=== PATIENT | male | born 1970 | race American Indian/Alaskan Native ===

== ENCOUNTER 2018-06-09 10:23 | Emergency (ER) | payer SELFPAY ==
[2018-06-09 10:40] VITALS: BP 124/75
--- NOTE | 2018-06-09 11:53 | Emergency Department Report ---
Minor Respiratory - HPI Chief Complaint: Upper Respiratory Infection Stated Complaint: COUGH Time Seen by Provider: 06/09/18 11:18 Duration: off and on for several months Severity: moderate Minor Respiratory: Yes Rhinorrhea, Yes Able to Tolerate Fluids, Yes Cough (occasionally productive of clear sputum), No Sore Throat, No Ear Pain, No Sick Contacts, No Hemoptysis, No Chest Pain, No Shortness of Breath, No Fever Other History: Patient is a heavy smoker. Patient has no primary care physician 1 for his chronic cough. ED Review of Systems ROS: Stated complaint: COUGH Other details as noted in HPI Comment: All other systems reviewed and negative ED Past Medical Hx - Past Medical History Previous Medical History?: Yes Hx Arthritis: Yes - Surgical History Past Surgical History?: No - Social History Smoking Status: Current Every Day Smoker Substance Use Type: Marijuana - Medications Home Medications: Home Medications Medication Instructions Recorded Confirmed Last Taken Type ALBUTEROL Inhaler (OR & NICU) 2 puff IH QID PRN #1 inhalation 06/09/18 Unknown Rx [ProAir HFA Inhaler] predniSONE [Deltasone] 20 mg PO QDAY #5 tab 06/09/18 Unknown Rx Minor Respiratory Exam - Exam General: Vital signs noted. No distress. Alert and acting appropriately. HEENT: Yes Moist Mucous Membranes, No Pharyngeal Erythema, No Pharyngeal Exudates, No Rhinorrhea, No Conjuctival Injection, No Frontal Tenderness, No Maxillary Tenderness Ear: Neither TM Bulge, Neither TM Erythema, Neither EAC Pain, Neither EAC Discharge Neck: Yes Supple, No Adenopathy Lungs: Yes Good Air Exchange, No Wheezes, No Ronchi, No Stridor, No Cough, No Labored Respirations, No Retractions, No Use of Accessory Muscles, No Other Abnormal Lung Sounds Heart: Yes Regular, No Murmur Abdomen: Yes Normal Bowel Sounds, No Tenderness, No Peritoneal Signs Skin: No Rash, No Edema Neurologic: Alert and oriented, no deficits. Musculoskeletal: Unremarkable. ED Course Vital Signs 06/09/18 10:38 Temperature 98.2 F Pulse Rate 80 Respiratory 16 Rate Blood Pressure 124/75 O2 Sat by Pulse 97 Oximetry ED Medical Decision Making - Medical Decision Making Patient will be referred to pulmonology for his chronic cough. Patient has been encouraged to decrease or stop smoking. Critical care attestation.: If time is entered above; I have spent that time in minutes in the direct care of this critically ill patient, excluding procedure time. ED Disposition Clinical Impression: Chronic bronchitis Disposition: DC-01 TO HOME OR SELFCARE Is pt being admited?: No Does the pt Need Aspirin: No Condition: Stable Instructions: Chronic Bronchitis (ED) Referrals: HENNA ARIAS MD [Primary Care Provider] - 3-5 Days Time of Disposition: 11:53
== END 2018-06-09 12:03 | disposition home or self-care (01) ==
LOC: ED 10:23
DX: M19.90 Unspecified osteoarthritis, unspecified site (principal); F17.200 Nicotine dependence, unspecified, uncomplicated; F12.10 Cannabis abuse, uncomplicated; Z88.8 Allergy status to other drugs, medicaments and biological substances
CPT/HCPCS: 99282

== ENCOUNTER 2018-06-19 19:13 | Emergency (ER) | payer SELFPAY ==
[2018-06-19 19:28] VITALS: BP 137/65
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
== END 2018-06-19 21:25 | disposition home or self-care (01) ==
LOC: MERGE 19:13 → ED 19:13
DX: S46.812A Strain of other muscles, fascia and tendons at shoulder and upper arm level, left arm, initial encounter (principal); M54.2 Cervicalgia; M25.561 Pain in right knee; M25.521 Pain in right elbow; R07.89 Other chest pain; F31.9 Bipolar disorder, unspecified; F20.9 Schizophrenia, unspecified; Z88.8 Allergy status to other drugs, medicaments and biological substances; V19.9XXA Pedal cyclist (driver) (passenger) injured in unspecified traffic accident, initial encounter; Y93.89 Activity, other specified; Y92.488 Other paved roadways as the place of occurrence of the external cause; Y99.8 Other external cause status
CPT/HCPCS: 99282

== ENCOUNTER 2018-08-08 21:42 | Emergency (ER) | payer SELFPAY ==
[2018-08-08 21:55] VITALS: BP 127/85
== END 2018-08-08 22:41 | disposition left against medical advice (07) ==
LOC: ED 21:42
DX: H92.02 Otalgia, left ear (principal); Z53.21 Procedure and treatment not carried out due to patient leaving prior to being seen by health care provider

== ENCOUNTER 2018-09-30 13:46 | Emergency (ER) | payer OTHER ==
[2018-09-30 13:57] VITALS: BP 122/83
--- NOTE | 2018-09-30 13:59 | Emergency Department Report ---
ED ENT HPI - General Chief complaint: Dental/Oral Stated complaint: RT TOOTH PAIN Time Seen by Provider: 09/30/18 13:54 Source: patient Mode of arrival: Ambulatory Limitations: No Limitations - History of Present Illness Initial comments: Pt presents with right upper dental pain that began yesterday. Pt has not taken anything for the dental pain. Pt states he has a cavity on that side. Pt states he has not seen a dentist in 10 years. He denies any fever, N/V. He is a smoker. Pt has a medication allergy to risperidone. PMHx arthritis, bipolar, schizo phrenia. - Related Data Home Medications Medication Instructions Recorded Confirmed Last Taken traZODone [Desyrel] 50 mg PO QHS PRN 12/31/13 02/02/17 2 Days Ago ~06/30/15 Previous Rx's Medication Instructions Recorded Last Taken Type traMADol [Ultram 50 MG tab] 50 mg PO Q6HR PRN #20 tablet 12/05/15 Unknown Rx Amoxicillin/Potassium Clav 1 each PO BID #14 tablet 08/14/17 Unknown Rx [Augmentin 875-125 Tablet] Loratadine/Pseudoephedrine 1 tab PO Q12H #20 tablet 08/14/17 Unknown Rx [Claritin-D 12HR] Amoxicillin/Potassium Clav 1 each PO BIDDIAB #20 tablet 01/13/18 Unknown Rx [Augmentin 875-125 Tablet] ALBUTEROL Inhaler (OR & NICU) 2 puff IH QID PRN #1 inhalation 06/09/18 Unknown Rx [ProAir HFA Inhaler] predniSONE [Deltasone] 20 mg PO QDAY #5 tab 06/09/18 Unknown Rx Baclofen [Lioresal] 10 mg PO TID #15 tab 06/19/18 Unknown Rx Ibuprofen 800 mg PO TID PRN #15 tablet 06/19/18 Unknown Rx Neomy/Polymyx B/Hc (Otic) Soln 4 drops TID #1 bottle 08/09/18 Unknown Rx [Cortisporin (Otic) Soln] Amoxicillin/K Clav Tab [Augmentin 1 tab PO Q12HR 7 Days #14 tab 09/30/18 Unknown Rx 875MG TAB] Ibuprofen [Motrin 800 MG tab] 800 mg PO Q8HR PRN #20 tablet 09/30/18 Unknown Rx Allergies Allergy/AdvReac Type Severity Reaction Status Date / Time risperidone [From Risperdal] Allergy Shortness Verified 06/21/18 08:13 of Breath ED Dental HPI - General Chief complaint: Dental/Oral Stated complaint: RT TOOTH PAIN Time Seen by Provider: 09/30/18 13:54 Source: patient Mode of arrival: Ambulatory Limitations: No Limitations - Related Data Home Medications Medication Instructions Recorded Confirmed Last Taken traZODone [Desyrel] 50 mg PO QHS PRN 12/31/13 02/02/17 2 Days Ago ~06/30/15 Previous Rx's Medication Instructions Recorded Last Taken Type traMADol [Ultram 50 MG tab] 50 mg PO Q6HR PRN #20 tablet 12/05/15 Unknown Rx Amoxicillin/Potassium Clav 1 each PO BID #14 tablet 08/14/17 Unknown Rx [Augmentin 875-125 Tablet] Loratadine/Pseudoephedrine 1 tab PO Q12H #20 tablet 08/14/17 Unknown Rx [Claritin-D 12HR] Amoxicillin/Potassium Clav 1 each PO BIDDIAB #20 tablet 01/13/18 Unknown Rx [Augmentin 875-125 Tablet] ALBUTEROL Inhaler (OR & NICU) 2 puff IH QID PRN #1 inhalation 06/09/18 Unknown Rx [ProAir HFA Inhaler] predniSONE [Deltasone] 20 mg PO QDAY #5 tab 06/09/18 Unknown Rx Baclofen [Lioresal] 10 mg PO TID #15 tab 06/19/18 Unknown Rx Ibuprofen 800 mg PO TID PRN #15 tablet 06/19/18 Unknown Rx Neomy/Polymyx B/Hc (Otic) Soln 4 drops TID #1 bottle 08/09/18 Unknown Rx [Cortisporin (Otic) Soln] Amoxicillin/K Clav Tab [Augmentin 1 tab PO Q12HR 7 Days #14 tab 09/30/18 Unknown Rx 875MG TAB] Ibuprofen [Motrin 800 MG tab] 800 mg PO Q8HR PRN #20 tablet 09/30/18 Unknown Rx Allergies Allergy/AdvReac Type Severity Reaction Status Date / Time risperidone [From Risperdal] Allergy Shortness Verified 06/21/18 08:13 of Breath ED Review of Systems ROS: Stated complaint: RT TOOTH PAIN Other details as noted in HPI Comment: All other systems reviewed and negative ED Past Medical Hx - Past Medical History Previous Medical History?: Yes Hx Arthritis: Yes Hx Psychiatric Treatment: Yes (multiple IP tx's / BIPOLAR / SCHIZOPHRENIA) - Surgical History Past Surgical History?: No - Social History Smoking Status: Current Every Day Smoker Substance Use Type: Alcohol - Medications Home Medications: Home Medications Medication Instructions Recorded Confirmed Last Taken Type traZODone [Desyrel] 50 mg PO QHS PRN 12/31/13 02/02/17 2 Days Ago History ~06/30/15 traMADol [Ultram 50 MG tab] 50 mg PO Q6HR PRN #20 tablet 12/05/15 02/02/17 Unknown Rx Amoxicillin/Potassium Clav 1 each PO BID #14 tablet 08/14/17 Unknown Rx [Augmentin 875-125 Tablet] Loratadine/Pseudoephedrine 1 tab PO Q12H #20 tablet 08/14/17 Unknown Rx [Claritin-D 12HR] Amoxicillin/Potassium Clav 1 each PO BIDDIAB #20 tablet 01/13/18 Unknown Rx [Augmentin 875-125 Tablet] ALBUTEROL Inhaler (OR & NICU) 2 puff IH QID PRN #1 inhalation 06/09/18 Unknown Rx [ProAir HFA Inhaler] predniSONE [Deltasone] 20 mg PO QDAY #5 tab 06/09/18 Unknown Rx Baclofen [Lioresal] 10 mg PO TID #15 tab 06/19/18 Unknown Rx Ibuprofen 800 mg PO TID PRN #15 tablet 06/19/18 Unknown Rx Neomy/Polymyx B/Hc (Otic) Soln 4 drops TID #1 bottle 08/09/18 Unknown Rx [Cortisporin (Otic) Soln] Amoxicillin/K Clav Tab [Augmentin 1 tab PO Q12HR 7 Days #14 tab 09/30/18 Unknown Rx 875MG TAB] Ibuprofen [Motrin 800 MG tab] 800 mg PO Q8HR PRN #20 tablet 09/30/18 Unknown Rx ED Physical Exam - General Limitations: No Limitations General appearance: alert, in no apparent distress - Head Head exam: Present: atraumatic, normocephalic - Eye Eye exam: Present: normal appearance, PERRL - ENT ENT exam: Present: mucous membranes moist, other (pt has fractured tooth on the right upper side, very poor dentition, multiple dental caries, no obvious induration or fluctuance, no facial swelling ) - Neurological Exam Neurological exam: Present: alert, oriented X3 - Psychiatric Psychiatric exam: Present: normal affect, normal mood - Skin Skin exam: Present: warm, dry, intact ED Course Vital Signs 09/30/18 13:55 Temperature 98.4 F Pulse Rate 79 Respiratory 18 Rate Blood Pressure 122/83 O2 Sat by Pulse 94 Oximetry ED Medical Decision Making - Medical Decision Making on exam pt has very poor dentition, multiple dental caries, cracked tooth on the right upper side. no obvious dental abscess, no facial edema. pt given anti- inflammatory and abx. pt given a list of multiple dental clinics. advised to follow up with dentist [facility]. follow up with PCP in the next 2-3 days. Take all medication as prescribed. Return to the ED for any new or worsening symptoms. Critical care attestation.: If time is entered above; I have spent that time in minutes in the direct care of this critically ill patient, excluding procedure time. ED Disposition Clinical Impression: Pain due to dental caries, Broken or cracked tooth, nontraumatic Disposition: - TO HOME OR SELFCARE Is pt being admited?: No Does the pt Need Aspirin: No Condition: Stable Instructions: Dental Caries (ED), Toothache (ED) Additional Instructions: Please take medication as prescribed. Please follow up with a dentist as soon as possible. Given list of dental clinics. Return to the emergency room for any new or worsening symptoms. Prescriptions: Amoxicillin/K Clav Tab [Augmentin 875MG TAB] 1 tab PO Q12HR 7 Days #14 tab Ibuprofen [Motrin 800 MG tab] 800 mg PO Q8HR PRN #20 tablet PRN Reason: Pain Referrals: a, dentist [Other] - [facility] [Provider Group] - 2-3 Days Time of Disposition: 14:20 Print Language: CZECH
== END 2018-09-30 14:40 | disposition home or self-care (01) ==
LOC: ED 13:46
DX: K02.9 Dental caries, unspecified (principal); K03.81 Cracked tooth; F31.9 Bipolar disorder, unspecified; F20.9 Schizophrenia, unspecified; M19.90 Unspecified osteoarthritis, unspecified site; F17.200 Nicotine dependence, unspecified, uncomplicated; Z79.899 Other long term (current) drug therapy; Z88.8 Allergy status to other drugs, medicaments and biological substances
CPT/HCPCS: 99282

== ENCOUNTER 2018-11-18 08:46 | Emergency (ER) | payer OTHER ==
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
[2018-11-18 13:40] VITALS: BP 139/87
== END 2018-11-18 13:40 | disposition home or self-care (01) ==
LOC: ED 08:46
DX: Y92.89 Other specified places as the place of occurrence of the external cause (principal); T76.21XA Adult sexual abuse, suspected, initial encounter; K62.89 Other specified diseases of anus and rectum; F31.9 Bipolar disorder, unspecified; F20.9 Schizophrenia, unspecified; F17.200 Nicotine dependence, unspecified, uncomplicated; M19.90 Unspecified osteoarthritis, unspecified site; Z88.8 Allergy status to other drugs, medicaments and biological substances

== ENCOUNTER 2019-03-23 18:03 | Emergency (ER) | payer OTHER ==
--- NOTE | 2019-03-23 19:27 | Event Note ---
ED Screening Note Date of service: 03/23/19 Time: 19:25 ED Screening Note: This is a 48 y.o. M. that presents to the ER with dental pain and low back pain for 90 days. Patient states he was incarcerated for 90 days and been in pain every since. Given ibuprofen with no improvement of symptoms. Denies recent injury. This initial assessment/diagnostic orders/clinical plan/treatment(s) is/are subject to change based on patients health status, clinical progression and re- assessment by fellow clinical providers in the ED. Further treatment and workup at subsequent clinical providers discretion. Patient/guardian urged not to elope from the ED as their condition may be serious if not clinically assessed and managed. Initial orders include:
[2019-03-23] MEDS ORDERED: IBUPROFEN 800 MG TAB PO ONE (20:36)
--- NOTE | 2019-03-23 20:36 | Emergency Department Report ---
HPI - General Chief Complaint: Dental/Oral Time Seen by Provider: 03/23/19 19:24 - HPI HPI: This is a 48-year-old male here reported that he is having toothache to upper and lower tooth and both sides. He reports that he just came out of assisted and that he is also having backache and neck ache which is chronic for him from lying on the hard surface. He denies any injury. It says on triage sheet the patient was having chest pain but patient denies any chest pain. Denies any shortness of breath. Denies any cough, nasal congestion or runny nose. Denies any fever or chills. Denies any abdominal pain. Toothache is 6 out of 10 and achy and has been ongoing for a while and he said he did not have any access to a dentist because he was incarcerated. Patient is also requesting urology referral for circumcision which I gave him phone number for [facility]. Denies any fever or chills. Denies any drooling or difficulty swallowing. Denies any sore throats. He said he took [id number] Tylenol but is not helping his pain. ED Past Medical Hx - Past Medical History Previous Medical History?: Yes Hx Arthritis: Yes Hx Psychiatric Treatment: Yes (multiple IP tx's / BIPOLAR / SCHIZOPHRENIA) - Surgical History Past Surgical History?: No Additional Surgical History: Chronic neck and back pain - Family History Family history: hypertension - Social History Smoking Status: Current Every Day Smoker Substance Use Type: None - Medications Home Medications: Home Medications Medication Instructions Recorded Confirmed Last Taken Type traZODone [Desyrel] 50 mg PO QHS PRN 12/31/13 02/02/17 2 Days Ago History ~06/30/15 traMADol [Ultram 50 MG tab] 50 mg PO Q6HR PRN #20 tablet 12/05/15 02/02/17 Unkn own Rx Amoxicillin/Potassium Clav 1 each PO BID #14 tablet 08/14/17 Unknown Rx [Augmentin 875-125 Tablet] Loratadine/Pseudoephedrine 1 tab PO Q12H #20 tablet 08/14/17 Unknown Rx [Claritin-D 12HR] Amoxicillin/Potassium Clav 1 each PO BIDDIAB #20 tablet 01/13/18 Unknown Rx [Augmentin 875-125 Tablet] ALBUTEROL Inhaler (OR & NICU) 2 puff IH QID PRN #1 inhalation 06/09/18 Unknown Rx [ProAir HFA Inhaler] predniSONE [Deltasone] 20 mg PO QDAY #5 tab 06/09/18 Unknown Rx Baclofen [Lioresal] 10 mg PO TID #15 tab 06/19/18 Unknown Rx Ibuprofen 800 mg PO TID PRN #15 tablet 06/19/18 Unknown Rx Neomy/Polymyx B/Hc (Otic) Soln 4 drops TID #1 bottle 08/09/18 Unknown Rx [Cortisporin (Otic) Soln] Amoxicillin/K Clav Tab [Augmentin 1 tab PO Q12HR 7 Days #14 tab 09/30/18 Unknown Rx 875MG TAB] Amoxicillin [Amoxicillin TAB] 875 mg PO BID 10 Days #20 tablet 03/23/19 Unknown Rx Ibuprofen [Motrin 800 MG tab] 800 mg PO Q8HR PRN #12 tablet 03/23/19 Unknown Rx ED Review of Systems ROS: Stated complaint: CHEST PAIN/THROAT/BACK PAIN Other details as noted in HPI Constitutional: denies: chills, fever Eyes: denies: eye pain, eye discharge ENT: dental pain. denies: ear pain, throat pain, hearing loss, epistaxis, congestion Respiratory: denies: cough, shortness of breath, wheezing Cardiovascular: denies: chest pain, palpitations, edema, syncope Gastrointestinal: denies: nausea, vomiting Genitourinary: denies: urgency, dysuria, frequency, hematuria, discharge, testicular pain, testicular mass Musculoskeletal: back pain (back pain on-and-off that has been going on for years), arthralgia (chronic neck pain that started going on for years). denies: joint swelling, myalgia Skin: denies: rash Neurological: denies: headache, weakness, numbness, paresthesias, confusion, abnormal gait, vertigo Physical Exam - Physical Exam Vital Signs: Vital Signs 03/23/19 19:11 Temperature 98.4 F Pulse Rate 79 Respiratory 20 Rate Blood Pressure 134/38 O2 Sat by Pulse 97 Oximetry General: This is a 48-year-old male well-nourished well-developed in no acute distress. Physical Exam: Head: Normocephalic atraumatic Ears:BIateral TM pearly bills . Anthony EAC with normal exam. No mastoid bone tenderness. Mouth: Moist, no pharyngeal erythema or exudate . Tongue is normal and oral airways patent. Uvula is midline. No abscess noted but noted dental tenderness around tooth #1,2 and 32. Noted dental cavities to several teeth without any pulp exposure. Lip is normal. Neck: Nontender to palpate, supple, normal range of motion. No adenopathy. No c- spine tenderness. Nose: Bilateral nasal mucosa normal exam maxillary and frontal sinuses non- tender to palpate. Eyes: Bilateral Sclerae and conjunctiva without injection. Bilateral pupils equal and reactive to light. Lungs: Clear to auscultate bilaterally, no rhonchi wheezes or rales. Normal work of breathing and no chest wall tenderness CV: S1, S2. Regular rate and rhythm negative murmur. Capillary refill is less than 3 seconds Abdomen: Nontender to palpation in all quadrants: No guarding or rebound tenderness. Positive bowel sounds in all quadrants Back: No paraspinal or vertebral tenderness to T-spine or L-spine. Patient able to ambulate without any difficulties. Normal sensation in all extremities, normal reflexes and negative straight leg raises. Neurological: And oriented 3, GCS of 15, speech is clear fluid, no facial asymmetry and no focal deficit. Extremity: No clubbing, cyanosis or edema. +2 pulses in all extremities and no neurovascular compromise Skin: Clean dry and intact, no rashes or lesions ED Course Vital Signs 03/23/19 19:11 Temperature 98.4 F Pulse Rate 79 Respiratory 20 Rate Blood Pressure 134/38 O2 Sat by Pulse 97 Oximetry - Reevaluation(s) Reevaluation #1: 03/23/19 21:05 She given amoxicillin 500 mg by mouth and Motrin 800 mg by mouth to cover pain and also gingivitis. He was given telephone number for [place] [facility] as she requested to follow-up for circumcision. ED Medical Decision Making - Medical Decision Making This is a 48-year-old male here for toothache mainly reports that he is having backache and neck ache that was aggravated from him been incarcerated but examination was normal for neck and back were no neurological damage. He has multiple dental caries, missing tooth and also gingivitis. Patient was given Motrin 800 mg in emergency room along with amoxicillin to start treatment for gingivitis and referral to [facility] and [facility] to follow for primary care. He was given number for [place] [facility] as requested for referral for circumcision an adult. He said the Motrin helped this pain and he has no acute distress. Vital signs stable he is afebrile and discharged home in stable condition. Patient was given good Rx prescription card for medication Critical care attestation.: If time is entered above; I have spent that time in minutes in the direct care of this critically ill patient, excluding procedure time. ED Disposition Clinical Impression: Gingivitis, Toothache, Musculoskeletal pain, Dental caries Disposition: TO HOME OR SELFCARE Is pt being admited?: No Does the pt Need Aspirin: No Condition: Stable Instructions: Toothache (ED), Dental Caries (ED), Gingivitis (ED), Musculoskeletal Pain (ED) Additional Instructions: Please follow up with [facility] and [facility] as instructed and see information given for phone number and direction to clinics. You condition worsens, return to the emergency room otherwise follow-up as instructed Take Motrin for pain and amoxicillin antibiotic for gingivitis and you need to see a dentist for evaluation and treatment. Prescriptions: Amoxicillin [Amoxicillin TAB] 875 mg PO BID 10 Days #20 tablet Ibuprofen [Motrin 800 MG tab] 800 mg PO Q8HR PRN #12 tablet PRN Reason: Pain Referrals: [facility] [Outside] - 3-5 Days [facility] [Outside] - 3-5 Days [facility] [Provider Group] - 3-5 Days Forms: Work/School Release Form(ED)
[2019-03-23] MEDS ORDERED: AMOXICILLIN 500 MG CAP PO ONE (20:37)
[2019-03-23 21:53] VITALS: BP 114/80
== END 2019-03-23 21:52 | disposition home or self-care (01) ==
LOC: ED 18:03
DX: K05.10 Chronic gingivitis, plaque induced (principal); K02.9 Dental caries, unspecified; F31.9 Bipolar disorder, unspecified; F17.200 Nicotine dependence, unspecified, uncomplicated; Z88.8 Allergy status to other drugs, medicaments and biological substances

== ENCOUNTER 2021-05-09 20:45 | Emergency (ER) | payer MEDICARE ==
--- NOTE | 2021-05-09 22:27 | Emergency Department Report ---
ED General Adult HPI - General Chief complaint: Skin/Abscess/Foreign Body Stated complaint: L SIDE PAIN Time Seen by Provider: 05/09/21 22:13 Source: patient Mode of arrival: Ambulatory Limitations: No Limitations - Related Data Home Medications Medication Instructions Recorded Confirmed Last Taken traZODone [Desyrel] 50 mg PO QHS PRN 12/31/13 02/02/17 2 Days Ago ~06/30/15 Previous Rx's Medication Instructions Recorded Last Taken Type traMADoL [Ultram 50 MG tab] 50 mg PO Q6HR PRN #20 tablet 12/05/15 Unknown Rx Amoxicillin/Potassium Clav 1 each PO BID #14 tablet 08/14/17 Unknown Rx [Augmentin 875-125 Tablet] Loratadine/Pseudoephedrine 1 tab PO Q12H #20 tablet 08/14/17 Unknown Rx [Claritin-D 12HR] Amoxicillin/Potassium Clav 1 each PO BIDDIAB #20 tablet 01/13/18 Unknown Rx [Augmentin 875-125 Tablet] Albuterol Mdi (or & Nicu Only) 2 puff IH QID PRN #1 inhalation 06/09/18 Unknown Rx [ProAir HFA Inhaler] predniSONE [Deltasone] 20 mg PO QDAY #5 tab 06/09/18 Unknown Rx Baclofen [Lioresal] 10 mg PO TID #15 tab 06/19/18 Unknown Rx Ibuprofen 800 mg PO TID PRN #15 tablet 06/19/18 Unknown Rx Neomy/Polymyx B/Hc (Otic) Soln 4 drops TID #1 bottle 08/09/18 Unknown Rx [Cortisporin (Otic) Soln] Amoxicillin/K Clav Tab [Augmentin 1 tab PO Q12HR 7 Days #14 tab 09/30/18 Unknown Rx 875MG TAB] Amoxicillin [Amoxicillin TAB] 875 mg PO BID 10 Days #20 tablet 03/23/19 Unknown Rx Ibuprofen [Motrin 800 MG tab] 800 mg PO Q8HR PRN #12 tablet 03/23/19 Unknown Rx Amoxicillin [Amoxicillin TAB] 875 mg PO BID #20 tablet 05/09/21 Unknown Rx Chlorhexidine Mouthwash [Peridex] 15 ml MM BID #1 bottle 05/09/21 Unknown Rx Ketorolac [Toradol] 10 mg PO Q6H PRN #15 tablet 05/09/21 Unknown Rx Lidocaine Viscous 2% 5 ml MM Q3H PRN #120 udc 05/09/21 Unknown Rx Allergies Allergy/AdvReac Type Severity Reaction Status Date / Time risperidone [From Risperdal] Allergy Shortness Verified 05/09/21 22:13 of Breath ED Review of Systems ROS: Stated complaint: L SIDE PAIN Other details as noted in HPI Comment: All other systems reviewed and negative ED Past Medical Hx - Past Medical History Hx Arthritis: Yes Hx Psychiatric Treatment: Yes (multiple IP tx's / BIPOLAR / SCHIZOPHRENIA) - Surgical History Additional Surgical History: Chronic neck and back pain - Social History Smoking Status: Current Every Day Smoker Substance Use Type: None - Medications Home Medications: Home Medications Medication Instructions Recorded Confirmed Last Taken Type traZODone [Desyrel] 50 mg PO QHS PRN 12/31/13 02/02/17 2 Days Ago History ~06/30/15 traMADoL [Ultram 50 MG tab] 50 mg PO Q6HR PRN #20 tablet 12/05/15 02/02/17 Unknown Rx Amoxicillin/Potassium Clav 1 each PO BID #14 tablet 08/14/17 Unknown Rx [Augmentin 875-125 Tablet] Loratadine/Pseudoephedrine 1 tab PO Q12H #20 tablet 08/14/17 Unknown Rx [Claritin-D 12HR] Amoxicillin/Potassium Clav 1 each PO BIDDIAB #20 tablet 01/13/18 Unknown Rx [Augmentin 875-125 Tablet] Albuterol Mdi (or & Nicu Only) 2 puff IH QID PRN #1 inhalation 06/09/18 Unknown Rx [ProAir HFA Inhaler] predniSONE [Deltasone] 20 mg PO QDAY #5 tab 06/09/18 Unknown Rx Baclofen [Lioresal] 10 mg PO TID #15 tab 06/19/18 Unknown Rx Ibuprofen 800 mg PO TID PRN #15 tablet 06/19/18 Unknown Rx Neomy/Polymyx B/Hc (Otic) Soln 4 drops TID #1 bottle 08/09/18 Unknown Rx [Cortisporin (Otic) Soln] Amoxicillin/K Clav Tab [Augmentin 1 tab PO Q12HR 7 Days #14 tab 09/30/18 Unknown Rx 875MG TAB] Amoxicillin [Amoxicillin TAB] 875 mg PO BID 10 Days #20 tablet 03/23/19 Unknown Rx Ibuprofen [Motrin 800 MG tab] 800 mg PO Q8HR PRN #12 tablet 03/23/19 Unknown Rx Amoxicillin [Amoxicillin TAB] 875 mg PO BID #20 tablet 05/09/21 Unknown Rx Chlorhexidine Mouthwash [Peridex] 15 ml MM BID #1 bottle 05/09/21 Unknown Rx Ketorolac [Toradol] 10 mg PO Q6H PRN #15 tablet 05/09/21 Unknown Rx Lidocaine Viscous 2% 5 ml MM Q3H PRN #120 udc 05/09/21 Unknown Rx ED Physical Exam - General Limitations: No Limitations General appearance: alert, in no apparent distress - Head Head exam: Present: normocephalic - Expanded Head Exam Expanded 1 - inclusion cyst to this regin. - Eye Eye exam: Present: normal appearance - ENT ENT exam: Present: mucous membranes moist - Expanded ENT Exam Expanded 1 - Dental Tenderness (with several erroded dention. gingival erythema.) - Neck Neck exam: Present: normal inspection - Respiratory Respiratory exam: Present: normal lung sounds bilaterally. Absent: respiratory distress - Cardiovascular Cardiovascular Exam: Present: regular rate, normal rhythm. Absent: systolic murmur, diastolic murmur, rubs, gallop - GI/Abdominal GI/Abdominal exam: Present: soft, normal bowel sounds - Rectal Rectal exam: Present: deferred - Extremities Exam Extremities exam: Present: normal inspection - Back Exam Back exam: Present: normal inspection - Neurological Exam Neurological exam: Present: alert, oriented X3 - Psychiatric Psychiatric exam: Present: normal affect, normal mood - Skin Skin exam: Present: warm, dry, intact, normal color. Absent: rash ED Course Vital Signs 05/09/21 22:09 Temperature 98.6 F Pulse Rate 71 Respiratory 17 Rate Blood Pressure 150/79 [Right] O2 Sat by Pulse 99 Oximetry Critical care attestation.: If time is entered above; I have spent that time in minutes in the direct care of this critically ill patient, excluding procedure time. ED Disposition Clinical Impression: Inclusion cyst, Infected dental caries Disposition: 01 HOME / SELF CARE / HOMELESS Is pt being admited?: No Does the pt Need Aspirin: No Condition: Stable Instructions: Epidermal Cyst Removal, Epidermal Cyst, Epidermal Cyst Removal, Care After Prescriptions: Amoxicillin [Amoxicillin TAB] 875 mg PO BID #20 tablet Lidocaine Viscous 2% 5 ml MM Q3H PRN #120 udc PRN Reason: Pain, Moderate (4-6) Chlorhexidine Mouthwash [Peridex] 15 ml MM BID #1 bottle Ketorolac [Toradol] 10 mg PO Q6H PRN #15 tablet PRN Reason: Pain Referrals: [facility] [Outside] - 3-5 Days (DENTAL CLINIC ) DEBRA LAMA MD [Staff Physician] - 3-5 Days
[2021-05-09 23:32] VITALS: BP 148/67
== END 2021-05-09 23:36 | disposition home or self-care (01) ==
LOC: ED 20:45
DX: L72.0 Epidermal cyst (principal); K02.9 Dental caries, unspecified; M19.90 Unspecified osteoarthritis, unspecified site; G89.29 Other chronic pain; F17.200 Nicotine dependence, unspecified, uncomplicated; Z79.899 Other long term (current) drug therapy
CPT/HCPCS: 99282

== ENCOUNTER 2021-05-11 21:24 | Emergency (ER) | payer MEDICARE | END 2021-05-12 04:12 | disposition left against medical advice (07) | LOC: ED 21:24 | DX: M25.551 Pain in right hip (principal); Z53.21 Procedure and treatment not carried out due to patient leaving prior to being seen by health care provider ==

== ENCOUNTER 2021-06-03 00:30 | Emergency (ER) | payer SELFPAY ==
[2021-06-03 00:37] VITALS: BP 151/75
--- NOTE | 2021-06-03 03:51 | Emergency Department Report ---
ED General Adult HPI - General Chief complaint: Extremity Injury, Lower Stated complaint: RIGHT NIP PAIN Time Seen by Provider: 06/03/21 03:26 Source: patient Mode of arrival: Ambulatory Limitations: No Limitations - History of Present Illness Initial comments: 50-year-old [place] male just emerged from complaining of hip pain associated with morning stiffness has been present for the last 4-5+ weeks. He reports no injury, no nausea, no vomiting, no abdominal pain no dysuria no fever, chills, sweats. No chest pain or palpitation. He reports no falls. Reports no recent injections in the hip area. -: Gradual Radiation: non-radiation Quality: aching, dull Consistency: constant Improves with: none Worsens with: none Associated Symptoms: denies other symptoms Treatments Prior to Arrival: none - Related Data Home Medications Medication Instructions Recorded Confirmed Last Taken traZODone [Desyrel] 50 mg PO QHS PRN 12/31/13 02/02/17 2 Days Ago ~06/30/15 Previous Rx's Medication Instructions Recorded Last Taken Type traMADoL [Ultram 50 MG tab] 50 mg PO Q6HR PRN #20 tablet 12/05/15 Unknown Rx Amoxicillin/Potassium Clav 1 each PO BID #14 tablet 08/14/17 Unknown Rx [Augmentin 875-125 Tablet] Loratadine/Pseudoephedrine 1 tab PO Q12H #20 tablet 08/14/17 Unknown Rx [Claritin-D 12HR] Amoxicillin/Potassium Clav 1 each PO BIDDIAB #20 tablet 01/13/18 Unknown Rx [Augmentin 875-125 Tablet] Albuterol Mdi (or & Nicu Only) 2 puff IH QID PRN #1 inhalation 06/09/18 Unknown Rx [ProAir HFA Inhaler] predniSONE [Deltasone] 20 mg PO QDAY #5 tab 06/09/18 Unknown Rx Baclofen [Lioresal] 10 mg PO TID #15 tab 06/19/18 Unknown Rx Ibuprofen 800 mg PO TID PRN #15 tablet 06/19/18 Unknown Rx Neomy/Polymyx B/Hc (Otic) Soln 4 drops TID #1 bottle 08/09/18 Unknown Rx [Cortisporin (Otic) Soln] Amoxicillin/K Clav Tab [Augmentin 1 tab PO Q12HR 7 Days #14 tab 09/30/18 Unknown Rx 875MG TAB] Amoxicillin [Amoxicillin TAB] 875 mg PO BID 10 Days #20 tablet 03/23/19 Unknown Rx Ibuprofen [Motrin 800 MG tab] 800 mg PO Q8HR PRN #12 tablet 03/23/19 Unknown Rx Amoxicillin [Amoxicillin TAB] 875 mg PO BID #20 tablet 05/09/21 Unknown Rx Chlorhexidine Mouthwash [Peridex] 15 ml MM BID #1 bottle 05/09/21 Unknown Rx Ketorolac [Toradol] 10 mg PO Q6H PRN #15 tablet 05/09/21 Unknown Rx Lidocaine Viscous 2% 5 ml MM Q3H PRN #120 udc 05/09/21 Unknown Rx Meloxicam [Mobic] 15 mg PO DAILY #10 06/03/21 Unknown Rx Allergies Allergy/AdvReac Type Severity Reaction Status Date / Time risperidone [From Risperdal] Allergy Shortness Verified 05/09/21 22:13 of Breath ED Review of Systems ROS: Stated complaint: RIGHT NIP PAIN Other details as noted in HPI Comment: All other systems reviewed and negative ED Past Medical Hx - Past Medical History Previous Medical History?: Yes Hx Arthritis: Yes Hx Psychiatric Treatment: Yes (multiple IP tx's / BIPOLAR / SCHIZOPHRENIA) - Surgical History Past Surgical History?: Yes Additional Surgical History: Chronic neck and back pain - Social History Smoking Status: Current Every Day Smoker Substance Use Type: None - Medications Home Medications: Home Medications Medication Instructions Recorded Confirmed Last Taken Type traZODone [Desyrel] 50 mg PO QHS PRN 12/31/13 02/02/17 2 Days Ago History ~06/30/15 traMADoL [Ultram 50 MG tab] 50 mg PO Q6HR PRN #20 tablet 12/05/15 02/02/17 Unknown Rx Amoxicillin/Potassium Clav 1 each PO BID #14 tablet 08/14/17 Unknown Rx [Augmentin 875-125 Tablet] Loratadine/Pseudoephedrine 1 tab PO Q12H #20 tablet 08/14/17 Unknown Rx [Claritin-D 12HR] Amoxicillin/Potassium Clav 1 each PO BIDDIAB #20 tablet 01/13/18 Unknown Rx [Augmentin 875-125 Tablet] Albuterol Mdi (or & Nicu Only) 2 puff IH QID PRN #1 inhalation 06/09/18 Unknown Rx [ProAir HFA Inhaler] predniSONE [Deltasone] 20 mg PO QDAY #5 tab 06/09/18 Unknown Rx Baclofen [Lioresal] 10 mg PO TID #15 tab 06/19/18 Unknown Rx Ibuprofen 800 mg PO TID PRN #15 tablet 06/19/18 Unknown Rx Neomy/Polymyx B/Hc (Otic) Soln 4 drops TID #1 bottle 08/09/18 Unknown Rx [Cortisporin (Otic) Soln] Amoxicillin/K Clav Tab [Augmentin 1 tab PO Q12HR 7 Days #14 tab 09/30/18 Unknown Rx 875MG TAB] Amoxicillin [Amoxicillin TAB] 875 mg PO BID 10 Days #20 tablet 03/23/19 Unknown Rx Ibuprofen [Motrin 800 MG tab] 800 mg PO Q8HR PRN #12 tablet 03/23/19 Unknown Rx Amoxicillin [Amoxicillin TAB] 875 mg PO BID #20 tablet 05/09/21 Unknown Rx Chlorhexidine Mouthwash [Peridex] 15 ml MM BID #1 bottle 05/09/21 Unknown Rx Ketorolac [Toradol] 10 mg PO Q6H PRN #15 tablet 05/09/21 Unknown Rx Lidocaine Viscous 2% 5 ml MM Q3H PRN #120 udc 05/09/21 Unknown Rx Meloxicam [Mobic] 15 mg PO DAILY #10 06/03/21 Unknown Rx ED Physical Exam - General Limitations: No Limitations General appearance: alert, in no apparent distress - Head Head exam: Present: atraumatic, normocephalic - Eye Eye exam: Present: normal appearance, PERRL, EOMI Pupils: Present: normal accommodation - ENT ENT exam: Present: normal exam, normal orophraynx, mucous membranes moist, TM's normal bilaterally - Neck Neck exam: Present: normal inspection, full ROM - Respiratory Respiratory exam: Present: normal lung sounds bilaterally. Absent: respiratory distress - Cardiovascular Cardiovascular Exam: Present: regular rate, normal rhythm. Absent: systolic murmur, diastolic murmur, rubs, gallop - GI/Abdominal GI/Abdominal exam: Present: soft, normal bowel sounds - Rectal Rectal exam: Present: deferred - Extremities Exam Extremities exam: Present: normal inspection - Back Exam Back exam: Present: normal inspection, CVA tenderness (R), other (Need to seek evaluation. But the joint is stable normal. No bruising. No tenderness to tooth to the iliac crest. Full range of motion is noted. Strength is 5/5) - Neurological Exam Neurological exam: Present: alert, oriented X3, CN II-XII intact, normal gait - Psychiatric Psychiatric exam: Present: normal affect, normal mood - Skin Skin exam: Present: warm, dry, intact, normal color. Absent: rash ED Course Vital Signs 06/03/21 00:36 Temperature 98.0 F Pulse Rate 80 Respiratory 18 Rate Blood Pressure 151/75 O2 Sat by Pulse 98 Oximetry Critical care attestation.: If time is entered above; I have spent that time in minutes in the direct care of this critically ill patient, excluding procedure time. ED Disposition Clinical Impression: Hip pain Disposition: HOME / SELF CARE / HOMELESS Is pt being admited?: No Does the pt Need Aspirin: No Condition: Stable Instructions: Hip Pain, Joint Pain, Joint Pain, [id number] Prescriptions: Meloxicam [Mobic] 15 mg PO DAILY #10 Referrals: MABEL KENNEDY MD [Staff Physician] - 3-5 Days
== END 2021-06-03 03:32 | disposition home or self-care (01) ==
LOC: ED 00:30
DX: M25.551 Pain in right hip (principal); M19.90 Unspecified osteoarthritis, unspecified site; F20.9 Schizophrenia, unspecified; F31.9 Bipolar disorder, unspecified; Z98.890 Other specified postprocedural states; Z79.899 Other long term (current) drug therapy
CPT/HCPCS: 99282

== ENCOUNTER 2021-12-07 13:58 | Emergency (ER) | payer MEDICARE ==
[2021-12-08] MEDS ORDERED: oxyCODONE /ACETAMINOPHEN 5-325MG TAB PO ONE (02:00)
--- NOTE | 2021-12-08 02:45 | Emergency Department Report ---
ED General Adult HPI - General Chief complaint: Pain General Stated complaint: RT HIP AAND NECK PAIN Time Seen by Provider: 12/07/21 20:57 Source: patient Mode of arrival: Ambulatory Limitations: No Limitations - History of Present Illness Initial comments: 49-year-old male presents emerged department complaining of pain to the right cheek history of an unknown type of arthritis of the last 1 to 2 months has been fluctuating off and on. Worsened over the last 2 weeks but reports no traumatic events preceding or worsening symptoms. No numbness or tingling. Pain is dull and throbbing worse with standing up pacing. No fever, chills, sweats. No dysuria no hematuria no hematuria no loss of bowel bladder no saddle paresthesia. Severity scale (0 -10): 7 Quality: dull Consistency: constant Improves with: none Worsens with: none Associated Symptoms: denies other symptoms Treatments Prior to Arrival: none - Related Data Home Medications Medication Instructions Recorded Confirmed Last Taken traZODone [Desyrel] 50 mg PO QHS PRN 12/31/13 02/02/17 2 Days Ago ~06/30/15 Previous Rx's Medication Instructions Recorded Last Taken Type traMADoL [Ultram 50 MG tab] 50 mg PO Q6HR PRN #20 tablet 12/05/15 Unknown Rx Amoxicillin/Potassium Clav 1 each PO BID #14 tablet 08/14/17 Unknown Rx [Augmentin 875-125 Tablet] Loratadine/Pseudoephedrine 1 tab PO Q12H #20 tablet 08/14/17 Unknown Rx [Claritin-D 12HR] Amoxicillin/Potassium Clav 1 each PO BIDDIAB #20 tablet 01/13/18 Unknown Rx [Augmentin 875-125 Tablet] Albuterol Mdi (or & Nicu Only) 2 puff IH QID PRN #1 inhalation 06/09/18 Unknown Rx [ProAir HFA Inhaler] predniSONE [Deltasone] 20 mg PO QDAY #5 tab 06/09/18 Unknown Rx Baclofen [Lioresal] 10 mg PO TID #15 tab 06/19/18 Unknown Rx Ibuprofen 800 mg PO TID PRN #15 tablet 06/19/18 Unknown Rx Neomy/Polymyx B/Hc (Otic) Soln 4 drops TID #1 bottle 08/09/18 Unknown Rx [Cortisporin (Otic) Soln] Amoxicillin/K Clav Tab [Augmentin 1 tab PO Q12HR 7 Days #14 tab 09/30/18 Unknown Rx 875MG TAB] Amoxicillin [Amoxicillin TAB] 875 mg PO BID 10 Days #20 tablet 03/23/19 Unknown Rx Ibuprofen [Motrin 800 MG tab] 800 mg PO Q8HR PRN #12 tablet 03/23/19 Unknown Rx Amoxicillin [Amoxicillin TAB] 875 mg PO BID #20 tablet 05/09/21 Unknown Rx Chlorhexidine Mouthwash [Peridex] 15 ml MM BID #1 bottle 05/09/21 Unknown Rx Ketorolac [Toradol] 10 mg PO Q6H PRN #15 tablet 05/09/21 Unknown Rx Lidocaine Viscous 2% 5 ml MM Q3H PRN #120 udc 05/09/21 Unknown Rx Meloxicam [Mobic] 15 mg PO DAILY #10 06/03/21 Unknown Rx Ketorolac [Toradol] 10 mg PO Q6H PRN #15 tablet 12/08/21 Unknown Rx traMADoL [Ultram] 50 mg PO Q6HR PRN #20 tablet 12/08/21 Unknown Rx Allergies Allergy/AdvReac Type Severity Reaction Status Date / Time risperidone [From Risperdal] Allergy Shortness Verified 12/07/21 16:43 of Breath ED Review of Systems ROS: Stated complaint: RT HIP AAND NECK PAIN Other details as noted in HPI Comment: All other systems reviewed and negative ED Past Medical Hx - Past Medical History Hx Arthritis: Yes Hx Psychiatric Treatment: Yes (multiple IP tx's / BIPOLAR / SCHIZOPHRENIA) - Surgical History Additional Surgical History: Chronic neck and back pain - Social History Smoking Status: Current Every Day Smoker Substance Use Type: None - Medications Home Medications: Home Medications Medication Instructions Recorded Confirmed Last Taken Type traZODone [Desyrel] 50 mg PO QHS PRN 12/31/13 02/02/17 2 Days Ago History ~06/30/15 traMADoL [Ultram 50 MG tab] 50 mg PO Q6HR PRN #20 tablet 12/05/15 02/02/17 Unknown Rx Amoxicillin/Potassium Clav 1 each PO BID #14 tablet 08/14/17 Unknown Rx [Augmentin 875-125 Tablet] Loratadine/Pseudoephedrine 1 tab PO Q12H #20 tablet 08/14/17 Unknown Rx [Claritin-D 12HR] Amoxicillin/Potassium Clav 1 each PO BIDDIAB #20 tablet 01/13/18 Unknown Rx [Augmentin 875-125 Tablet] Albuterol Mdi (or & Nicu Only) 2 puff IH QID PRN #1 inhalation 06/09/18 Unknown Rx [ProAir HFA Inhaler] predniSONE [Deltasone] 20 mg PO QDAY #5 tab 06/09/18 Unknown Rx Baclofen [Lioresal] 10 mg PO TID #15 tab 06/19/18 Unknown Rx Ibuprofen 800 mg PO TID PRN #15 tablet 06/19/18 Unknown Rx Neomy/Polymyx B/Hc (Otic) Soln 4 drops TID #1 bottle 08/09/18 Unknown Rx [Cortisporin (Otic) Soln] Amoxicillin/K Clav Tab [Augmentin 1 tab PO Q12HR 7 Days #14 tab 09/30/18 Unknown Rx 875MG TAB] Amoxicillin [Amoxicillin TAB] 875 mg PO BID 10 Days #20 tablet 03/23/19 Unknown Rx Ibuprofen [Motrin 800 MG tab] 800 mg PO Q8HR PRN #12 tablet 03/23/19 Unknown Rx Amoxicillin [Amoxicillin TAB] 875 mg PO BID #20 tablet 05/09/21 Unknown Rx Chlorhexidine Mouthwash [Peridex] 15 ml MM BID #1 bottle 05/09/21 Unknown Rx Ketorolac [Toradol] 10 mg PO Q6H PRN #15 tablet 05/09/21 Unknown Rx Lidocaine Viscous 2% 5 ml MM Q3H PRN #120 udc 05/09/21 Unknown Rx Meloxicam [Mobic] 15 mg PO DAILY #10 06/03/21 Unknown Rx Ketorolac [Toradol] 10 mg PO Q6H PRN #15 tablet 12/08/21 Unknown Rx traMADoL [Ultram] 50 mg PO Q6HR PRN #20 tablet 12/08/21 Unknown Rx ED Physical Exam - General Limitations: No Limitations General appearance: alert, in no apparent distress - Head Head exam: Present: atraumatic, normocephalic - Eye Eye exam: Present: normal appearance, PERRL, EOMI Pupils: Present: normal accommodation - ENT ENT exam: Present: normal exam, normal orophraynx, mucous membranes moist, TM's normal bilaterally - Neck Neck exam: Present: normal inspection, full ROM - Respiratory Respiratory exam: Present: normal lung sounds bilaterally. Absent: respiratory distress, wheezes, rales, chest wall tenderness, accessory muscle use - Cardiovascular Cardiovascular Exam: Present: regular rate, normal rhythm. Absent: systolic murmur, diastolic murmur, rubs, gallop - GI/Abdominal GI/Abdominal exam: Present: soft, normal bowel sounds. Absent: distended, tenderness, hypoactive bowel sounds, organomegaly - Rectal Rectal exam: Present: deferred - Extremities Exam Extremities exam: Present: normal inspection, full ROM, tenderness, normal capillary refill - Back Exam Back exam: Present: normal inspection. Absent: CVA tenderness (R), CVA tenderness (L) - Neurological Exam Neurological exam: Present: alert, oriented X3, CN II-XII intact, normal gait - Psychiatric Psychiatric exam: Present: normal affect, normal mood - Skin Skin exam: Present: warm, dry, intact, normal color. Absent: rash ED Course Vital Signs 12/07/21 12/08/21 12/08/21 14:18 02:17 03:10 Temperature 98.7 F Pulse Rate 74 77 Respiratory 14 16 12 Rate Blood Pressure 140/80 146/87 [Left] O2 Sat by Pulse 99 98 Oximetry Critical care attestation.: If time is entered above; I have spent that time in minutes in the direct care of this critically ill patient, excluding procedure time. ED Disposition Clinical Impression: Trochanteric bursitis of right hip Disposition: 01 HOME / SELF CARE / HOMELESS Is pt being admited?: No Does the pt Need Aspirin: No Condition: Stable Instructions: Hip Bursitis, [id number], Hip Bursitis Rehab-Sports[facility] Prescriptions: Ketorolac [Toradol] 10 mg PO Q6H PRN #15 tablet PRN Reason: Pain traMADoL [Ultram] 50 mg PO Q6HR PRN #20 tablet PRN Reason: Pain Referrals: PRIMARY CARE,MD [Primary Care Provider] - 3-5 Days
[2021-12-08 03:11] VITALS: BP 146/87
== END 2021-12-08 03:11 | disposition home or self-care (01) ==
LOC: ED 13:58
DX: M70.61 Trochanteric bursitis, right hip (principal); M19.90 Unspecified osteoarthritis, unspecified site; F20.9 Schizophrenia, unspecified; F31.9 Bipolar disorder, unspecified; G89.29 Other chronic pain; M54.9 Dorsalgia, unspecified; M54.2 Cervicalgia; F17.290 Nicotine dependence, other tobacco product, uncomplicated; Z88.8 Allergy status to other drugs, medicaments and biological substances; Y93.89 Activity, other specified
CPT/HCPCS: 99282

== ENCOUNTER 2021-12-29 21:18 | Emergency (ER) | payer SELFPAY ==
[2021-12-30] MEDS ORDERED: ACETAMINOPHEN 500 MG TAB PO ONE (01:28)
[2021-12-30] MEDS ORDERED: IBUPROFEN 600 MG TAB PO ONE (01:28)
[2021-12-30] MEDS ORDERED: predniSONE 20 MG TAB PO ONE (02:25)
[2021-12-30 02:52] LABS: Basophils % (Auto) 0.5 % (0.0-1.8); Eosinophils # (Auto) 0.4 K/mm3 (0.0-0.4); Eosinophils % (Auto) 7.5 % (0.0-4.3); Hematocrit 38.7 % (35.5-45.6); Lymphocytes # (Auto) 2.3 K/mm3 (1.2-5.4); Mean Corpuscular HGB Conc 34 % (32-34); Mean Corpuscular Volume 96 fl (84-94); Monocytes # (Auto) 0.3 K/mm3 (0.0-0.8); Monocytes % (Auto) 6.8 % (0.0-7.3); Platelet Count 175 K/mm3 (140-440); Red Blood Count 4.03 M/mm3 (3.65-5.03); Red Cell Distribution Width 14.1 % (13.2-15.2)
[2021-12-30 03:11] LABS: Alanine Aminotransferase 10 units/L (7-56); Albumin 3.3 g/dL (3.9-5); BUN/Creatinine Ratio 13; Blood Urea Nitrogen 12 mg/dL (9-20); Hemolysis Index 8
--- NOTE | 2021-12-30 03:32 | XRay Report ---
XR spine cervical 2-3V INDICATION / CLINICAL INFORMATION: pain. COMPARISON: None available. FINDINGS: BONES/JOINT(S): Reversal of normal cervical lordosis. No significant malalignment. Moderate multileve l disc degeneration and moderate facet arthropathy. No evidence of fracture. PARASPINAL SOFT TISSUES:No significant abnormality. ADDITIONAL FINDINGS: None. IMPRESSION: 1. No acute findings. Signer Name: Lorenzo Hicks MD Signed: 12/30/2021 3:27 AM Workstation Name: [id number]
--- NOTE | 2021-12-30 03:34 | XRay Report ---
Left elbow, 3 views HISTORY: Pain COMPARISON: None FINDINGS: There is subtle lucency involving the volar aspect of the left radial head. This is suspici ous for nondisplaced fracture. No additional fracture or joint malalignment. No joint effusion. Signer Name: Lorenzo Hicks MD Signed: 12/30/2021 3:30 AM Workstation Name: [id number]
--- NOTE | 2021-12-30 03:42 | XRay Report ---
Right hip, single provided frog-leg view HISTORY: Pain COMPARISON: None FINDINGS: No acute fracture or malalignment on single provided frog-leg view of the right hip. Mild o steoarthritis. No focal soft tissue abnormality. Signer Name: Lorenzo Hicks MD Signed: 12/30/2021 3:38 AM Workstation Name: [id number]
--- NOTE | 2021-12-30 04:00 | Emergency Department Report ---
ED General Adult HPI - General Chief complaint: Pain General Stated complaint: RT ARM PAIN Source: patient Mode of arrival: Ambulatory Limitations: No Limitations - History of Present Illness Initial comments: Patient is a 51-year-old -Italian male with a history of anxiety, depression, bipolar disorder, paranoid schizophrenia and chronic osteoarthritis due to chronic neck and lower back injuries presents to the ED with complaint of acute exacerbation of his chronic pain characterized by neck pain, right hip and right elbow pain for the last 2 months, worse in the last 5 days. Patient states that he has also been feeling generalized weakness and fatigue. Patient denies dizziness, syncope, chest pain, shortness of breath, fever, chills, nausea and vomiting, diarrhea, cough, sore throat, abdominal pain, traumatic injury, heavy lifting, dysuria, urinary frequency and urgency or testicular pain and hematuria MD Complaint: chronic neck pain, chronic right hip and elbow pain -: Gradual, year(s) (12) Location: neck, back (lower), upper extremity (right elbow) Radiation: non-radiation Severity scale (0 -10): 8 Quality: aching, sharp Consistency: constant Improves with: none Worsens with: movement Associated Symptoms: denies other symptoms. denies: confusion, chest pain, cough, diaphoresis, fever/chills, headaches, malaise, nausea/vomiting, rash, seizure, shortness of breath, syncope, weakness Treatments Prior to Arrival: none - Related Data Home Medications Medication Instructions Recorded Confirmed Last Taken traZODone [Desyrel] 50 mg PO QHS PRN 12/31/13 02/02/17 2 Days Ago ~06/30/15 Previous Rx's Medication Instructions Recorded Last Taken Type traMADoL [Ultram 50 MG tab] 50 mg PO Q6HR PRN #20 tablet 12/05/15 Unknown Rx Amoxicillin/Potassium Clav 1 each PO BID #14 tablet 08/14/17 Unknown Rx [Augmentin 875-125 Tablet] Loratadine/Pseudoephedrine 1 tab PO Q12H #20 tablet 08/14/17 Unknown Rx [Claritin-D 12HR] Amoxicillin/Potassium Clav 1 each PO BIDDIAB #20 tablet 01/13/18 Unknown Rx [Augmentin 875-125 Tablet] Albuterol Mdi (or & Nicu Only) 2 puff IH QID PRN #1 inhalation 06/09/18 Unknown Rx [ProAir HFA Inhaler] Baclofen [Lioresal] 10 mg PO TID #15 tab 06/19/18 Unknown Rx Ibuprofen 800 mg PO TID PRN #15 tablet 06/19/18 Unknown Rx Neomy/Polymyx B/Hc (Otic) Soln 4 drops TID #1 bottle 08/09/18 Unknown Rx [Cortisporin (Otic) Soln] Amoxicillin/K Clav Tab [Augmentin 1 tab PO Q12HR 7 Days #14 tab 09/30/18 Unknown Rx 875MG TAB] Amoxicillin [Amoxicillin TAB] 875 mg PO BID 10 Days #20 tablet 03/23/19 Unknown Rx Amoxicillin [Amoxicillin TAB] 875 mg PO BID #20 tablet 05/09/21 Unknown Rx Chlorhexidine Mouthwash [Peridex] 15 ml MM BID #1 bottle 05/09/21 Unknown Rx Ketorolac [Toradol] 10 mg PO Q6H PRN #15 tablet 05/09/21 Unknown Rx Lidocaine Viscous 2% 5 ml MM Q3H PRN #120 udc 05/09/21 Unknown Rx Meloxicam [Mobic] 15 mg PO DAILY #10 06/03/21 Unknown Rx Ketorolac [Toradol] 10 mg PO Q6H PRN #15 tablet 12/08/21 Unknown Rx Baclofen 20 mg PO Q12H PRN #30 tab 12/30/21 Unknown Rx Ibuprofen [Motrin 800 MG tab] 800 mg PO Q8HR PRN #30 tablet 12/30/21 Unknown Rx predniSONE [Deltasone] 60 mg PO QDAY #15 tab 12/30/21 Unknown Rx traMADoL [Ultram 50 MG tab] 50 mg PO Q6HR PRN #12 tablet 12/30/21 Unknown Rx Allergies Allergy/AdvReac Type Severity Reaction Status Date / Time risperidone [From Risperdal] Allergy Shortness Verified 12/07/21 16:43 of Breath ED Review of Systems ROS: Stated complaint: RT ARM PAIN Other details as noted in HPI Constitutional: denies: chills, fever Eyes: denies: eye pain, eye discharge, vision change ENT: denies: ear pain, throat pain Respiratory: denies: cough, shortness of breath, wheezing Cardiovascular: denies: chest pain, palpitations Endocrine: no symptoms reported Gastrointestinal: denies: abdominal pain, nausea, vomiting, diarrhea Genitourinary: denies: urgency, dysuria Musculoskeletal: arthralgia (right elbow pain; neck pain; right hip pain), myalgia. denies: back pain, joint swelling Skin: denies: rash, lesions, change in color, change in hair/nails, pruritus Neurological: denies: headache, weakness, numbness, paresthesias, confusion, abnormal gait, vertigo Psychiatric: denies: anxiety, depression Hematological/Lymphatic: denies: easy bleeding, easy bruising ED Past Medical Hx - Past Medical History Hx Arthritis: Yes Hx Psychiatric Treatment: Yes (multiple IP tx's / BIPOLAR / SCHIZOPHRENIA) - Surgical History Additional Surgical History: Chronic neck and back pain - Social History Smoking Status: Current Every Day Smoker Substance Use Type: None - Medications Home Medications: Home Medications Medication Instructions Recorded Confirmed Last Taken Type traZODone [Desyrel] 50 mg PO QHS PRN 12/31/13 02/02/17 2 Days Ago History ~06/30/15 traMADoL [Ultram 50 MG tab] 50 mg PO Q6HR PRN #20 tablet 12/05/15 02/02/17 Unknown Rx Amoxicillin/Potassium Clav 1 each PO BID #14 tablet 08/14/17 Unknown Rx [Augmentin 875-125 Tablet] Loratadine/Pseudoephedrine 1 tab PO Q12H #20 tablet 08/14/17 Unknown Rx [Claritin-D 12HR] Amoxicillin/Potassium Clav 1 each PO BIDDIAB #20 tablet 01/13/18 Unknown Rx [Augmentin 875-125 Tablet] Albuterol Mdi (or & Nicu Only) 2 puff IH QID PRN #1 inhalation 06/09/18 Unknown Rx [ProAir HFA Inhaler] Baclofen [Lioresal] 10 mg PO TID #15 tab 06/19/18 Unknown Rx Ibuprofen 800 mg PO TID PRN #15 tablet 06/19/18 Unknown Rx Neomy/Polymyx B/Hc (Otic) Soln 4 drops TID #1 bottle 08/09/18 Unknown Rx [Cortisporin (Otic) Soln] Amoxicillin/K Clav Tab [Augmentin 1 tab PO Q12HR 7 Days #14 tab 09/30/18 Unknown Rx 875MG TAB] Amoxicillin [Amoxicillin TAB] 875 mg PO BID 10 Days #20 tablet 03/23/19 Unknown Rx Amoxicillin [Amoxicillin TAB] 875 mg PO BID #20 tablet 05/09/21 Unknown Rx Chlorhexidine Mouthwash [Peridex] 15 ml MM BID #1 bottle 05/09/21 Unknown Rx Ketorolac [Toradol] 10 mg PO Q6H PRN #15 tablet 05/09/21 Unknown Rx Lidocaine Viscous 2% 5 ml MM Q3H PRN #120 udc 05/09/21 Unknown Rx Meloxicam [Mobic] 15 mg PO DAILY #10 06/03/21 Unknown Rx Ketorolac [Toradol] 10 mg PO Q6H PRN #15 tablet 12/08/21 Unknown Rx Baclofen 20 mg PO Q12H PRN #30 tab 12/30/21 Unknown Rx Ibuprofen [Motrin 800 MG tab] 800 mg PO Q8HR PRN #30 tablet 12/30/21 Unknown Rx predniSONE [Deltasone] 60 mg PO QDAY #15 tab 12/30/21 Unknown Rx traMADoL [Ultram 50 MG tab] 50 mg PO Q6HR PRN #12 tablet 12/30/21 Unknown Rx ED Physical Exam - General Limitations: No Limitations General appearance: alert, in no apparent distress - Head Head exam: Present: atraumatic, normocephalic, normal inspection - Eye Eye exam: Present: normal appearance, PERRL, EOMI Pupils: Present: normal accommodation - ENT ENT exam: Present: normal exam, normal orophraynx, mucous membranes moist, TM's normal bilaterally, normal external ear exam - Neck Neck exam: Present: normal inspection, tenderness (palpable cervical paraspinal musculoskeletal tenderness), full ROM. Absent: lymphadenopathy - Respiratory Respiratory exam: Present: normal lung sounds bilaterally. Absent: respiratory distress, wheezes, rales, rhonchi, chest wall tenderness, accessory muscle use, decreased breath sounds, prolonged expiratory - Cardiovascular Cardiovascular Exam: Present: regular rate, normal rhythm, normal heart sounds. Absent: systolic murmur, diastolic murmur, rubs, gallop - GI/Abdominal GI/Abdominal exam: Present: soft, normal bowel sounds. Absent: tenderness, guarding, rebound, hyperactive bowel sounds, organomegaly - Extremities Exam Extremities exam: Present: normal inspection, full ROM, tenderness (palpable right elbow and hip tenderness), normal capillary refill. Absent: pedal edema, joint swelling, calf tenderness - Back Exam Back exam: Present: normal inspection, full ROM. Absent: tenderness, CVA tenderness (R), CVA tenderness (L), muscle spasm, paraspinal tenderness, vertebral tenderness - Neurological Exam Neurological exam: Present: alert, oriented X3, CN II-XII intact, normal gait, reflexes normal - Psychiatric Psychiatric exam: Present: normal affect, normal mood - Skin Skin exam: Present: warm, dry, intact, normal color. Absent: rash ED Course Vital Signs 12/29/21 21:53 Temperature 98.3 F Pulse Rate 79 Respiratory 18 Rate Blood Pressure 135/87 O2 Sat by Pulse 96 Oximetry ED Medical Decision Making - Lab Data Result diagrams: 12/30/21 02:36 12/30/21 02:36 - Radiology Data Radiology results: report reviewed, image reviewed [address] [address] XRay Report Signed Patient: JAYLA COX MR#: [id number] : 1970 Acct:[id number] Age/Sex: 51 / M ADM Date: 12/29/21 Loc: ED Attending Dr: Ordering Physician: NOHEMY LAU Date of Service: 12/30/21 Procedure(s): XR hip 2-3V RT Accession Number(s): [id number] cc: NOHEMY LAU Fluoro Time In Minutes: Right hip, single provided frog-leg view HISTORY: Pain COMPARISON: None FINDINGS: No acute fracture or malalignment on single provided frog-leg view of the right hip. Mild osteoarthritis. No focal soft tissue abnormality. Signer Name: Tanna Shannon MD Signed: 12/30/2021 3:38 AM Workstation Name: [id number] Transcribed By: JOSEPH Dictated By: TANNA SHANNON MD Electronically Authenticated By: TANNA SHANNON MD Signed Date/Time: 12/30/21337 DD/ 6 TD/TT: Print [facility] [address] [place] [address] XRay Report Signed Patient: JAYLA COX MR#: [id number] : 1970 Acct:[id number] Age/Sex: 51 / M ADM Date: 12/29/21 Loc: ED Attending Dr: Ordering Physician: NOHEMY LAU Date of Service: 12/30/21 Procedure(s): XR elbow 2V RT Accession Number(s): [id number] cc: NOHEMY LAU Fluoro Time In Minutes: Left elbow, 3 views HISTORY: Pain COMPARISON: None FINDINGS: There is subtle lucency involving the volar aspect of the left radial head. This is suspicious for nondisplaced fracture. No additional fracture or joint malalignment. No joint effusion. Signer Name: Tanna Shannon MD Signed: 12/30/2021 3:30 AM Workstation Name: [id number] Transcribed By: JS Dictated By: TANNA SHANNON MD Electronically Authenticated By: TANNA SHANNON MD Signed Date/Time: 12/30/21329 DD/ 7 TD/TT: Print Cancel [facility] [address] [place] [address] XRay Report Signed Patient: JAYLA COX MR#: [id number] : 1970 Acct:[id number] Age/Sex: 51 / M ADM Date: 12/29/21 Loc: ED Attending Dr: Ordering Physician: NOHEMY LAU Date of Service: 12/30/21 Procedure(s): XR spine cervical 2-3V Accession Number(s): [id number] cc: NOHEMY LAU Fluoro Time In Minutes: XR spine cervical 2-3V INDICATION / CLINICAL INFORMATION: pain. COMPARISON: None available. FINDINGS: BONES/JOINT(S): Reversal of normal cervical lordosis. No significant malalignm ent. Moderate multilevel disc degeneration and moderate facet arthropathy. No evidence of fracture. PARASPINAL SOFT TISSUES:No significant abnormality. ADDITIONAL FINDINGS: None. IMPRESSION: 1. No acute findings. Signer Name: Tanna Shannon MD Signed: 12/30/2021 3:27 AM Workstation Name: [id number] Transcribed By: JS Dictated By: TANNA SHANNON MD Electronically Authenticated By: TANNA SHANNON MD Signed Date/Time: 12/30/21326 DD/ 6 TD/TT: Print Cancel - Medical Decision Making This is a 51-year-old -Italian male with a history of anxiety, depression, bipolar disorder, paranoid schizophrenia and chronic osteoarthritis due to chronic neck and lower back injuries presents to the ED with complaint of acute exacerbation of his chronic pain characterized by neck pain, right hip and right elbow pain for the last 2 months, worse in the last 5 days. Patient states that he has also been feeling generalized weakness and fatigue. In the ED, patient is alert and oriented x3 and is not in any distress. Patient was treated for pain in the ED. The right hip x-ray showed no acute fractures or subluxations. C-spine x-ray showed no acute fractures or subluxation except d egenerative joint disease. Right elbow x-ray showed a subtle lucency involving the volar aspect of the left radial head. This is suspicious for nondisplaced fracture. No additional fracture or joint malalignment. No joint effusion. However given the patient's history of no recent injury, this changes may be degenerative or concerning for remote history of injuries. Patient was therefore discharged home on pain medications and advised to follow-up with his primary care physician in 7 to 10 days for reevaluation or return to the ED immediately if symptoms get worse. - Differential Diagnosis chronic pain; chronic osteoarthritis; muscle strain; muscle spasm Critical care attestation.: If time is entered above; I have spent that time in minutes in the direct care of this critically ill patient, excluding procedure time. ED Disposition Clinical Impression: Chronic osteoarthritis, Chronic pain of right hip, Chronic pain of right elbow, Cervical paraspinous muscle spasm Disposition: HOME / SELF CARE / HOMELESS Is pt being admited?: No Does the pt Need Aspirin: No Condition: Stable Instructions: Muscle Cramps and Spasms, [id number], Arthritis, [id number], Musculoskeletal Pain, Joint Pain, [id number], Pain Medicine Instructions, [id number], Hip Pain Additional Instructions: Al lab test results were reviewed and are all nonactionable. All imaging reports were all nonactionable except for chronic degenerative joint disease (o steoarthritis). Therefore take medications with food, drink plenty of fluids, and follow up with your Primary Care Physician in 7-10 days for reevaluation. Return to the ED immediately if symptoms get worse. Prescriptions: Baclofen 20 mg PO Q12H PRN #30 tab PRN Reason: Muscle Spasm predniSONE [Deltasone] 60 mg PO QDAY #15 tab Ibuprofen [Motrin 800 MG tab] 800 mg PO Q8HR PRN #30 tablet PRN Reason: Pain traMADoL [Ultram 50 MG tab] 50 mg PO Q6HR PRN #12 tablet PRN Reason: Pain Referrals: [facility] [Provider Group] - 7-10 days Time of Disposition: 04:01 Print Language: PORTUGUESE
[2021-12-30 04:17] VITALS: BP 143/88
== END 2021-12-30 05:18 | disposition home or self-care (01) ==
LOC: ED 21:18
DX: M16.11 Unilateral primary osteoarthritis, right hip (principal); G89.4 Chronic pain syndrome; M25.551 Pain in right hip; M25.521 Pain in right elbow; M62.838 Other muscle spasm; F17.200 Nicotine dependence, unspecified, uncomplicated; Z88.8 Allergy status to other drugs, medicaments and biological substances
CPT/HCPCS: 36415; 72040; 80053; 85025; 99283

== ENCOUNTER 2022-02-04 10:58 | Emergency (ER) | payer SELFPAY ==
[2022-02-04 12:34] VITALS: BP 133/87
--- NOTE | 2022-02-04 17:53 | Emergency Department Report ---
ED General Adult HPI - General Chief complaint: Pain General Stated complaint: PELVIC/LOWER BACK PAIN Time Seen by Provider: 02/04/22 17:30 Source: patient Mode of arrival: Ambulatory Limitations: No Limitations - History of Present Illness Initial comments: Patient is a 51-year-old male who presents stating that he has had some rectal pain and rash that is been going on for approximately 4 days. He has also had a sore throat and some generalized fatigue. He is heterosexual and has no known exposure to monkey proximal. No other rash. He is however concerned about some pigmentary changes underneath his nails that he does not believe he is ever noticed before. Patient does have a history of paranoid schizophrenia and is very concerned about what this pigmentary changes. He denies any fever or chills. Denies any history of immunocompromise state or HIV. Improves with: none Worsens with: none Associated Symptoms: malaise, rash. denies: confusion, chest pain, cough, diaphoresis, fever/chills, headaches, loss of appetite, nausea/vomiting, seizure, shortness of breath, syncope, weakness Treatments Prior to Arrival: none - Related Data Home Medications Medication Instructions Recorded Confirmed Last Taken traZODone [Desyrel] 50 mg PO QHS PRN 12/31/13 02/02/17 2 Days Ago ~06/30/15 Previous Rx's Medication Instructions Recorded Last Taken Type traMADoL [Ultram 50 MG tab] 50 mg PO Q6HR PRN #20 tablet 12/05/15 Unknown Rx Amoxicillin/Potassium Clav 1 each PO BID #14 tablet 08/14/17 Unknown Rx [Augmentin 875-125 Tablet] Loratadine/Pseudoephedrine 1 tab PO Q12H #20 tablet 08/14/17 Unknown Rx [Claritin-D 12HR] Amoxicillin/Potassium Clav 1 each PO BIDDIAB #20 tablet 01/13/18 Unknown Rx [Augmentin 875-125 Tablet] Albuterol Mdi (or & Nicu Only) 2 puff IH QID PRN #1 inhalation 06/09/18 Unknown Rx [ProAir HFA Inhaler] Baclofen [Lioresal] 10 mg PO TID #15 tab 06/19/18 Unknown Rx Ibuprofen 800 mg PO TID PRN #15 tablet 06/19/18 Unknown Rx Neomy/Polymyx B/Hc (Otic) Soln 4 drops TID #1 bottle 08/09/18 Unknown Rx [Cortisporin (Otic) Soln] Amoxicillin/K Clav Tab [Augmentin 1 tab PO Q12HR 7 Days #14 tab 09/30/18 Unknown Rx 875MG TAB] Amoxicillin [Amoxicillin TAB] 875 mg PO BID 10 Days #20 tablet 03/23/19 Unknown Rx Amoxicillin [Amoxicillin TAB] 875 mg PO BID #20 tablet 05/09/21 Unknown Rx Chlorhexidine Mouthwash [Peridex] 15 ml MM BID #1 bottle 05/09/21 Unknown Rx Ketorolac [Toradol] 10 mg PO Q6H PRN #15 tablet 05/09/21 Unknown Rx Lidocaine Viscous 2% 5 ml MM Q3H PRN #120 udc 05/09/21 Unknown Rx Meloxicam [Mobic] 15 mg PO DAILY #10 06/03/21 Unknown Rx Ketorolac [Toradol] 10 mg PO Q6H PRN #15 tablet 12/08/21 Unknown Rx Baclofen 20 mg PO Q12H PRN #30 tab 12/30/21 Unknown Rx Ibuprofen [Motrin 800 MG tab] 800 mg PO Q8HR PRN #30 tablet 12/30/21 Unknown Rx predniSONE [Deltasone] 60 mg PO QDAY #15 tab 12/30/21 Unknown Rx traMADoL [Ultram 50 MG tab] 50 mg PO Q6HR PRN #12 tablet 12/30/21 Unknown Rx Allergies Allergy/AdvReac Type Severity Reaction Status Date / Time risperidone [From Risperdal] Allergy Shortness Verified 02/04/22 12:35 of Breath ED Review of Systems ROS: Stated complaint: PELVIC/LOWER BACK PAIN Other details as noted in HPI Comment: All other systems reviewed and negative Constitutional: denies: chills, fever Eyes: denies: eye pain, eye discharge, vision change ENT: denies: ear pain, throat pain Respiratory: denies: cough, shortness of breath, wheezing Cardiovascular: denies: chest pain, palpitations Endocrine: no symptoms reported Gastrointestinal: denies: abdominal pain, nausea, diarrhea Genitourinary: denies: urgency, dysuria Musculoskeletal: denies: back pain, joint swelling, arthralgia Skin: as per HPI. denies: lesions Neurological: denies: headache, weakness, paresthesias Psychiatric: denies: anxiety, depression Hematological/Lymphatic: denies: easy bleeding, easy bruising ED Past Medical Hx - Past Medical History Hx Arthritis: Yes Hx Psychiatric Treatment: Yes (multiple IP tx's / BIPOLAR / SCHIZOPHRENIA) Additional medical history: Chronic back pain - Surgical History Past Surgical History?: No Additional Surgical History: Chronic neck and back pain - Social History Smoking Status: Current Every Day Smoker Substance Use Type: None - Medications Home Medications: Home Medications Medication Instructions Recorded Confirmed Last Taken Type traZODone [Desyrel] 50 mg PO QHS PRN 12/31/13 02/02/17 2 Days Ago History ~06/30/15 traMADoL [Ultram 50 MG tab] 50 mg PO Q6HR PRN #20 tablet 12/05/15 02/02/17 Unknown Rx Amoxicillin/Potassium Clav 1 each PO BID #14 tablet 08/14/17 Unknown Rx [Augmentin 875-125 Tablet] Loratadine/Pseudoephedrine 1 tab PO Q12H #20 tablet 08/14/17 Unknown Rx [Claritin-D 12HR] Amoxicillin/Potassium Clav 1 each PO BIDDIAB #20 tablet 01/13/18 Unknown Rx [Augmentin 875-125 Tablet] Albuterol Mdi (or & Nicu Only) 2 puff IH QID PRN #1 inhalation 06/09/18 Unknown Rx [ProAir HFA Inhaler] Baclofen [Lioresal] 10 mg PO TID #15 tab 06/19/18 Unknown Rx Ibuprofen 800 mg PO TID PRN #15 tablet 06/19/18 Unknown Rx Neomy/Polymyx B/Hc (Otic) Soln 4 drops TID #1 bottle 08/09/18 Unknown Rx [Cortisporin (Otic) Soln] Amoxicillin/K Clav Tab [Augmentin 1 tab PO Q12HR 7 Days #14 tab 09/30/18 Unknown Rx 875MG TAB] Amoxicillin [Amoxicillin TAB] 875 mg PO BID 10 Days #20 tablet 03/23/19 Unknown Rx Amoxicillin [Amoxicillin TAB] 875 mg PO BID #20 tablet 05/09/21 Unknown Rx Chlorhexidine Mouthwash [Peridex] 15 ml MM BID #1 bottle 05/09/21 Unknown Rx Ketorolac [Toradol] 10 mg PO Q6H PRN #15 tablet 05/09/21 Unknown Rx Lidocaine Viscous 2% 5 ml MM Q3H PRN #120 udc 05/09/21 Unknown Rx Meloxicam [Mobic] 15 mg PO DAILY #10 06/03/21 Unknown Rx Ketorolac [Toradol] 10 mg PO Q6H PRN #15 tablet 12/08/21 Unknown Rx Baclofen 20 mg PO Q12H PRN #30 tab 12/30/21 Unknown Rx Ibuprofen [Motrin 800 MG tab] 800 mg PO Q8HR PRN #30 tablet 12/30/21 Unknown Rx predniSONE [Deltasone] 60 mg PO QDAY #15 tab 12/30/21 Unknown Rx traMADoL [Ultram 50 MG tab] 50 mg PO Q6HR PRN #12 tablet 12/30/21 Unknown Rx ED Physical Exam - General Limitations: No Limitations General appearance: alert, in no apparent distress - Head Head exam: Present: atraumatic, normocephalic - Eye Eye exam: Present: normal appearance - ENT ENT exam: Present: mucous membranes moist, other (Throat with no erythema or exudate. Uvula is midline with symmetrical elevation. No tonsillar enlargement.) - Neck Neck exam: Present: normal inspection. Absent: tenderness, meningismus - Respiratory Respiratory exam: Present: normal lung sounds bilaterally. Absent: respiratory distress - Cardiovascular Cardiovascular Exam: Present: regular rate, normal rhythm. Absent: systolic murmur, diastolic murmur, rubs, gallop - GI/Abdominal GI/Abdominal exam: Present: soft, normal bowel sounds - Rectal Rectal exam: Present: other (Perirectal area is with some dry crusted lesions that extend into the upper gluteal cleft and coccyx area. No swelling or erythema.) - Extremities Exam Extremities exam: Present: normal inspection - Back Exam Back exam: Present: normal inspection - Neurological Exam Neurological exam: Present: alert, oriented X3 - Psychiatric Psychiatric exam: Present: normal affect, normal mood - Skin Skin exam: Present: warm, dry, intact, normal color. Absent: rash ED Course Vital Signs 02/04/22 12:33 Temperature 98.4 F Pulse Rate 74 Respiratory 18 Rate Blood Pressure 133/87 [Left] O2 Sat by Pulse 99 Oximetry ED Medical Decision Making - Medical Decision Making 51-year-old heterosexual male with perirectal/gluteal cleft rash. Discussed with him that this could be fungal but is likely early monkey pox and he will need to go [facility] for viral testing. Also recommend that he goes to [place] or [place] if he has any worsening of his symptoms as well as follow-up with his primary care doctor this week. Critical care attestation.: If time is entered above; I have spent that time in minutes in the direct care of this critically ill patient, excluding procedure time. ED Disposition Clinical Impression: Rash, Rectal pain Disposition: HOME / SELF CARE / HOMELESS Is pt being admited?: No Condition: Stable Instructions: Rash, Adult Additional Instructions: likely early monkey pox and he will need to go to the health department clinic for viral testing. Also recommend that he goes to [place] or [place] if he has any worsening of his symptoms as well as follow-up with his primary care doctor this week. Cleanse with antibacterial soap twice daily and keep the area dry. May try antifungal/jock itch spray as well. Follow-up with your doctor. Referrals: DEBRA LAMA MD [Primary Care Provider] - 3-5 Days [facility] [Outside] - 3-5 Days
== END 2022-02-04 17:45 | disposition home or self-care (01) ==
LOC: ED 10:58
DX: K62.89 Other specified diseases of anus and rectum (principal); I10 Essential (primary) hypertension; M19.90 Unspecified osteoarthritis, unspecified site; F31.9 Bipolar disorder, unspecified; F17.200 Nicotine dependence, unspecified, uncomplicated; Z91.09 Other allergy status, other than to drugs and biological substances
CPT/HCPCS: 99282